=== PATIENT | male | born 1975 | race Hispanic/Latino ===

== ENCOUNTER 2018-01-23 12:08 | Emergency (ER) | payer OTHER ==
[~2018-01-23] VITALS: Ht 172.7 cm; Wt 90.7 kg
== END 2018-01-23 12:51 | disposition home or self-care (01) ==
LOC: ER 12:08
DX: M77.8 Other enthesopathies, not elsewhere classified (principal); G56.02 Carpal tunnel syndrome, left upper limb
CPT/HCPCS: 99282

== ENCOUNTER 2025-04-08 09:02 | Emergency (ER) | payer SELFPAY ==
[~2025-04-08] VITALS: Ht 157.5 cm; Wt 99.8 kg
[2025-04-08 09:15] VITALS: PULSE 96; RESP 20; TEMP 98.2
[2025-04-08] MEDS ORDERED: AMOXICILLIN500 MG PO (09:33)
[2025-04-08] MEDS ORDERED: BROMPHENIR-PSE118 ML PO (09:33)
[2025-04-08] MEDS ORDERED: PREDNISONE20 MG (09:33)
[2025-04-08] MEDS ORDERED: DOXYCYCLINE HY100 MG PO (10:00)
[2025-04-08 10:45] VITALS: BP 140/79; PULSE 87; RESP 16; O2SAT 97
== END 2025-04-08 10:30 | disposition home or self-care (01) ==
LOC: ER 09:10
DX: R05.9 Cough, unspecified (principal); J98.4 Other disorders of lung; R91.8 Other nonspecific abnormal finding of lung field; N28.89 Other specified disorders of kidney and ureter; L98.9 Disorder of the skin and subcutaneous tissue, unspecified
CPT/HCPCS: 99283